=== PATIENT | female | born 1995 | race Hispanic/Latino ===

== ENCOUNTER 2017-10-15 21:43 | Emergency (ER) | payer BC, OTHER ==
[2017-10-15] MEDS ORDERED: Adacel (T-DAP) 0.5 ML VIAL ONE (22:12)
[2017-10-15] MEDS ORDERED: Bacitracin Zinc 1 Packet ONE (22:12)
== END 2017-10-15 22:39 | disposition home or self-care (01) ==
LOC: BURERS 21:43
DX: S00.81XA Abrasion of other part of head, initial encounter (principal); E03.9 Hypothyroidism, unspecified; Z79.899 Other long term (current) drug therapy; W22.8XXA Striking against or struck by other objects, initial encounter
CPT/HCPCS: 90471; 90715